=== PATIENT | female | born 1980 | race Caucasian/White ===

== ENCOUNTER → 2018-07-29 | Outpatient (CLI) | payer OTHER ==
[~2018-07-29] VITALS: Ht 167.6 cm; Wt 163.3 kg
[~2018-07-29] MED LIST: BENTYL 10 MG CA10 M1 PO
--- NOTE | 2018-08-01 17:56 | P ---
[facility] [place] [address] PROCEDURE REPORT Name: LISASTEFFI Lyssa Room #: REG [facility]#: [id number] Admission: 07/29/18 ������������������ Attend Phys: Darrell Sheridan MD Discharge: ������������������ Date of : 82 Report #: [id number] THIS REPORT FOR: //name// CC: [facility] physician/PCP ASHLEY Sheridan DATE OF SERVICE: 07/29/2018 OUTPATIENT COLONOSCOPY: BRIEF HISTORY: The patient is a 37-year-old woman who has had chronic abdominal pain for some time. However, she had a more severe episode recently and a CT at [facility] revealed evidence of thickening of the transverse colon, possibly related to colitis. She also was noted to have a mesenteric adenitis in the ileocecal area. It was noted that these nodes were larger than it had been seen on a previous CT. She also has had occasional mild rectal bleeding. PREOPERATIVE DIAGNOSES: Abnormal CT of colon. Rectal bleeding. POSTOPERATIVE DIAGNOSIS: Normal colonoscopy to the terminal ileum. MEDICATIONS: Deep sedation with propofol per anesthesia. SPECIMEN: None. ESTIMATED BLOOD LOSS: None. PROCEDURE: Colonoscopy to cecum and terminal ileum. FINDINGS: Prior to propofol sedation, procedure of colonoscopy discussed with the patient as well as potential risks and its complications. She indicates she understands and desires to proceed. DESCRIPTION OF PROCEDURE: With the patient in left lateral decubitus position, digital examination was completed, which revealed no abnormalities. Subsequently, the Olympus video colonoscope was introduced in the rectum, advanced under direct vision to the cecum. Done with minimal difficulty. The cecum was identified by the ileocecal valve and the appendiceal orifice. I was able to visualize the distal segment of the terminal ileum, which was inspected and noted to be unremarkable. At that point, the scope was slowly withdrawn and careful circumferential views were obtained. Upon slow withdrawal of the scope, the prep was excellent. The mucosa was within normal limits, normal vascular pattern, normal light reflex. As the scope was withdrawn, the mucosa was noted to be within normal limits, normal vascular pattern and normal light reflex. [facility] [address] [place] [address] PROCEDURE REPORT Name: STEFFI GONZALEZ Room #: REG [facility] Miller.#: [id number] Admission: 07/29/18 ������������������ Attend Phys: Darrell Sheridan MD Discharge: ������������������ Date of : 82 Report #: [id number] She had normal colonic mucosa throughout the entire colon, specifically in the transverse colon. There was no evidence of mucosal thickening or colitis. No neoplastic lesions were seen. Scope was withdrawn through the remainder of the colon, which was normal. Scope was withdrawn in the rectum and no abnormalities were seen. Upon retroflexion, no abnormalities were seen. Scope was withdrawn. The patient tolerated the procedure well. CONDITION OF THE PATIENT UPON DISCHARGE: Following procedure, the patient drowsy, arousable, conversant and will be discharged home when fully ambulatory. INSTRUCTIONS TO THE PATIENT AND FAMILY AT THE TIME OF DISCHARGE: No neoplastic or inflammatory changes were seen. Specifically, there was no thickening or findings of colitis in the transverse colon. 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 It is not clear whether this is related to her pain or not. However, continue dicyclomine at this point in time. She should return to the office for followup in about 6 weeks. We will monitor symptoms and determine whether or not a followup CT is indicated. For colorectal screening, suggest return in 10 years for average risk screening colonoscopy. Withdrawal time from the cecum was 8 minutes 32 seconds. ��������������������������������������������� <ELECTRONICALLY SIGNED> ���������������������������������������� By: Darrell Sheridan MD ��������������������������������������������� 08/01/18 [id number] Darrell Sheridan MD /nt
== END | disposition home or self-care (01) ==
LOC: GI 09:05
DX: K62.5 Hemorrhage of anus and rectum (principal); I88.0 Nonspecific mesenteric lymphadenitis; D64.9 Anemia, unspecified; F17.210 Nicotine dependence, cigarettes, uncomplicated; Z90.49 Acquired absence of other specified parts of digestive tract; Z98.890 Other specified postprocedural states; Z88.0 Allergy status to penicillin; Z79.899 Other long term (current) drug therapy
CPT/HCPCS: 62110; 62900